=== PATIENT | female | born 1935 | race Caucasian/White ===

== ENCOUNTER → 2019-05-21 | Outpatient (CLI) | payer MEDICARE, BC ==
[2019-05-21 09:38] LABS: HEMOGLOBIN A1C 7.5 % (4.5-6.2)
== END ==
LOC: LB.CLINIC 08:29
PROVIDERS: ATTEND Nurse Practitioner Family
DX: E11.21 Type 2 diabetes mellitus with diabetic nephropathy (principal); E78.5 Hyperlipidemia, unspecified; E03.9 Hypothyroidism, unspecified
CPT/HCPCS: 36415; 83036

== ENCOUNTER 2021-04-12 11:09 | Emergency (ER) | payer MEDICARE, BC ==
[2021-04-12 11:22] VITALS: BP 155/45; PULSE 62
--- NOTE | 2021-04-12 11:55 | EDM.PDOC ---
ED HPI GENERAL MEDICAL PROBLEM - General Chief Complaint: ENT Problem Stated Complaint: NOSEBLEED / HEAVY / WON'T STOP Time Seen by Provider: 04/12/21 11:13 Source of Information: Reports: Patient, EMS History Limitations: Reports: No Limitations - History of Present Illness INITIAL COMMENTS - FREE TEXT/NARRATIVE: 86-year-old female presents to the ED via EMS. At time of arrival patient's nosebleed had been continuing for approximately 30 minutes. Patient was now able to control hemorrhage and described the bleeding as heavy, EMS was able to control hemorrhage in route to the ED. Patient was also hypertensive, and had blood seeping through her tear duct into her eye. Patient has no history of nosebleeds, patient is on multiple hypertensive medications. Patient has no other complaints. Patient denies chest pain, shortness breath, trauma, syncope/near syncope, dizzy lightheaded, blurred vision, headache, vertigo, nausea and vomiting. Duration: Minutes: (30) Location: Reports: Other (Nose) - Related Data Allergies Allergy/AdvReac Type Severity Reaction Status Date / Time Penicillins Allergy Fainting Verified 04/12/21 11:11 Home Meds: Home Meds Adalimumab [Humira] 40 mg SQ ASDIRECTED 07/30/14 [History] Aspirin [Halfprin] 81 mg PO DAILY 07/30/14 [History] Folic Acid 1 mg PO DAILY 07/30/14 [History] Levothyroxine Sodium [Levoxyl] 100 mcg PO DAILY 07/30/14 [History] Lisinopril 40 mg PO DAILY 07/30/14 [History] Methotrexate 12.5 mg PO Q7D 07/30/14 [History] amLODIPine Besylate [Norvasc] 2.5 mg PO DAILY 07/30/14 [History] atorvaSTATin [Lipitor] 40 mg PO BEDTIME 07/30/14 [History] cloNIDine HCL [Clonidine HCl ER] 0.1 mg PO TID 07/30/14 [History] glipiZIDE [Glipizide Xl] 10 mg PO DAILY 07/30/14 [History] hydroCHLOROthiazide [Hydrochlorothiazide] 25 mg PO DAILY 07/30/14 [History] metFORMIN HCl [Glucophage] 500 mg PO TID 07/30/14 [History] Social & Family History - Caffeine Use Caffeine Use: Reports: Coffee ED ROS ENT - Review of Systems Review Of Systems: Comprehensive ROS is negative, except as noted in HPI. ED EXAM, ENT - Physical Exam Exam: See Below Text/Narrative:: 86-year-old female found semi-Fowlers on EMS stretcher transferred to ED stretcher without assistance. Patient is in no apparent distress. GCS 456. Speaking in full sentences. Exam Limited By: No Limitations General Appearance: Alert, WD/WN, No Apparent Distress Eye Exam: Right Eye: Other (Blood evident in the tear duct, blood in tear king, no blood in the sclera or hyphema) Ears: Normal External Exam, Hearing Grossly Normal Nose: Active Bleeding (Kesselbach's plexus) Mouth/Throat: Normal Inspection Head: Atraumatic, Normocephalic Neck: Normal Inspection, Supple, Non-Tender, Full Range of Motion Respiratory/Chest: No Respiratory Distress, Lungs Clear, Normal Breath Sounds, No Accessory Muscle Use, Chest Non-Tender Cardiovascular: Normal Peripheral Pulses, Regular Rate, Rhythm, No Edema, No Gallop, No JVD, No Murmur, No Rub GI/Abdominal: Soft, Non-Tender, No Distention, No Mass Extremities: Normal Inspection, Normal Range of Motion, Non-Tender, Normal Capillary Refill, Pedal Edema (+1 (chronic)) Neurological: Alert, Oriented, CN II-XII Intact, Normal Cognition, Normal Gait, Normal Reflexes, No Motor/Sensory Deficits Psychiatric: Normal Affect, Normal Mood Skin: Warm, Dry, Intact, Normal Color, No Rash ED ENT PROCEDURES - Epistaxis Procedure Recent anticoagulants/antiplatlets: Yes (Aspirin) Uncontrolled HTN: Yes Recent septal/nasal surgery: No Site of bleeding: Right Nare, Anterior Clearing of clots: Patient Blew Nose, Other (Sneezing) Topical Meds: Other (Silver nitrate, TXA) Ice pack to area: No Chemical cautery: Silver Nitrate Topical Anterior Packing: Nasal Tampon Course - Vital Signs Last Recorded V/S: Last Vital Signs Temp 97 F 04/12/21 11:13 Pulse 62 04/12/21 11:20 Resp 16 04/12/21 11:13 BP 155/45 H 04/12/21 11:20 Pulse Ox 97 04/12/21 11:13 - Orders/Labs/Meds Orders: Active Orders 24 hr Category Date Time Status CXR [Chest 2V] [CR] Stat Exams 04/12/21 11:23 Taken Departure - Departure Time of Disposition: 12:36 Disposition: Home, Self-Care 01 Condition: Good Clinical Impression: Epistaxis, Hypertension - Discharge Information *PRESCRIPTION DRUG MONITORING PROGRAM REVIEWED*: No *COPY OF PRESCRIPTION DRUG MONITORING REPORT IN PATIENT DARREN: No Instructions: Nosebleed, Adult, [id number] Referrals: PCP,None [Primary Care Provider] - Forms: ED Department Discharge Care Plan Goals: Return as needed. Sepsis Event Note (ED) - Evaluation Sepsis Screening Result: No Definite Risk - Focused Exam Vital Signs: Vital Signs Temp Pulse Resp BP Pulse Ox 04/12/21 11:20 62 155/45 H 04/12/21 11:13 97 F 60 16 197/77 H 97 - My Orders Last 24 Hours: My Active Orders 04/12/21 11:23 CXR [Chest 2V] [CR] Stat - Assessment/Plan Last 24 Hours: My Active Orders 04/12/21 11:23 CXR [Chest 2V] [CR] Stat Assessment:: 1. Epistaxis 2. Hypertension Assessment: 86-year-old female presents to the ED for evaluation of appetite epistaxis the bleeding was controlled with interventions in the ED and therefore supportive outpatient management is indicated silver nitrate was attempted to cauterize the bleeding source, but was unsuccessful. Bleeding was stopped with the application of a nasal tampon saturated with TXA. The bleeding stopped and did not restart here in the ED. Therefore no nasal packing is indicated. Discussed with patient the use of humidity and Vaseline or bacitracin in the nares for the next week, if the bleeding does return patient is to return to the ED for further treatment, the next step in treatment was discussed with the patient and she understood. Patient advised for close follow-up with ENT, and or primary care. Patient was given discharge instructions for same. There are no risks of coagulopathy causing the bleeding or general medical condition such as thrombocytopenia, DIC, leukemia, etc. causing the bleeding today. Plan: EMS report, airway breathing circulation, history, exam, direct pressure, silver nitrate application without success, nasal tampon saturated with TXA, chest x-ray due to auscultation findings negative for pneumonia, patient is observed for 30 minutes after bleeding had ceased, patient given instructions, patient's questions were answered, patient was discharged in stable condition
--- NOTE | 2021-04-12 16:38 | CR ---
Date of Service: 04/12/21 Clinical Data: cough PA AND LATERAL CHEST: No priors. The heart size is normal. There is calcification of the aortic arch. The lungs are mildly hyperexpanded, but clear. No pneumothorax. No pleural effusions. No evidence of acute intrathoracic disease. [id number] MTDD
== END 2021-04-12 12:41 | disposition home or self-care (01) ==
LOC: LB.ED 11:09
DX: R04.0 Epistaxis (principal); I10 Essential (primary) hypertension; Z88.0 Allergy status to penicillin; Z79.82 Long term (current) use of aspirin; Z79.84 Long term (current) use of oral hypoglycemic drugs; Z79.899 Other long term (current) drug therapy
CPT/HCPCS: 30901; 71046; 99283-25; A0425; A0429